=== PATIENT | male | born 1995 | race African-American/Black ===

== ENCOUNTER 2019-10-08 18:27 | Emergency (ER) | payer OTHER ==
[~2019-10-08] VITALS: Ht 172.7 cm; Wt 86.0 kg
[2019-10-08] MEDS ORDERED: IV NORMAL SALINE 1,000ML 1,000 ML IV SCH (19:00)
[2019-10-08] MEDS ORDERED: ACETAMINOPHEN 325 MG TABLET PO ONE ×2 (19:00→19:15)
--- NOTE | 2019-10-08 19:05 | PHYS DOC ---
Past History Past Medical History: No Pertinent History Past Surgical History: No Surgical History Smoking: Non-smoker General Adult EDM: Chief Complaint: DYSPNEA/RESPIRATOY DISTRESS HPI: HPI: 24M with no PMH p/w 4 days of URI Sx. Tested COVID+ as outpatient 3 days ago. Reports nonproductive cough, nasal congestion, intermittent fever and chills. Also having pleuritic sharp diffuse CP over last 2 days. No other aggravating or alleviating factors. Review of Systems: Review of Systems: Constitutional: Reports fever or chills Eyes: Denies change in visual acuity HENT: Denies sore throat. Reports congestion. Respiratory: Reports cough or shortness of breath Cardiovascular: Denies edema. Reports pleuritic CP. GI: Denies abdominal pain, nausea, vomiting, bloody stools or diarrhea : Denies dysuria Musculoskeletal: Denies back pain or joint pain. Reports myalgia. Integument: Denies rash Neurologic: Denies headache, focal weakness or sensory changes Heart Score: Risk Factors: Risk Factors: DM, Current or recent (<one month) smoker, HTN, HLP, family history of CAD, obesity. Risk Scores: Score 0 - 3: 2.5% MACE over next 6 weeks - Discharge Home Score 4 - 6: 20.3% MACE over next 6 weeks - Admit for Clinical Observation Score 7 - 10: 72.7% MACE over next 6 weeks - Early Invasive Strategies Current Medications: Current Meds: Current Medications Medications (Trade) Dose Ordered Sig/Jeffy Start Time Stop Time Status Last Admin Dose Admin Acetaminophen (Tylenol) 325 mg STK-MED ONCE 10/08/19 19:00 10/08/19 19:00 DC Physical Exam: PE: Constitutional: Well developed, well nourished, no acute distress, non-toxic appearance. [] HENT: Normocephalic, atraumatic, bilateral external ears normal, oropharynx moist, no oral exudates. Eyes: PERRL, EOMI, conjunctiva normal, no discharge. [] Neck: Normal range of motion, no tenderness, supple, no stridor. [] Cardiovascular:Heart rate regular rhythm, no murmur [] Lungs & Thorax: Bilateral breath sounds clear to auscultation [] Abdomen: Bowel sounds normal, soft, no tenderness. Skin: Warm, dry, no erythema, no rash. Back: No tenderness, no CVA tenderness.. Extremities: No tenderness, no cyanosis, no clubbing. Neurologic: Alert and oriented X 3 Psychologic: Affect normal, judgement normal, mood normal. [] EKG: EKG: EKG at 1911. NSR. HR 68. Nml intervals. No STEMI. Interp by me. Radiology/Procedures: Radiology/Procedures: PROCEDURE: PORTABLE CHEST 1V Single view chest dated 10/08/2019: No comparison available. Clinical Indication: Pain and shortness of breath. COVID positive. Findings: Single upright portable exam of the chest was performed. Heart and mediastinal contours are within normal limits. There is some patchy increased density at both lung bases, left greater than right. No consolidation or pleural effusion. No pneumothorax. Impression:: Patchy bibasilar airspace disease, atelectasis versus pneumonia. Viral pneumonitis not excluded. Electronically signed by: Krystian Colunga MD (10/08/2019 7:58 PM) [facility] PROCEDURE: CT ANGIOGRAPHY CHEST CT angiography chest with contrast PQRS statement: CT scans at this facility use dose reduction including either automated exposure control, iterative reconstructions, and /or weight based radiation dosing via mA and kV modification when appropriate to reduce radiation dose to as low as reasonably achievable. HISTORY: Chest pain, shortness of breath, positive Covid 19 infection. TECHNIQUE: CT imaging the chest with 3-D MIP reconstructions of the pulmonary arteries with 100 mL Omnipaque 350 intravenous contrast. FINDINGS: 1 cm right renal cyst. Mild residual thymus gland density anterior mediastinum normal for age. Thoracic aorta and esophagus are unremarkable. Heart size normal. No pulmonary artery emboli there is mild reconstruction artifact across the left infrahilar vessels without a true embolus. No enlarged adenopathy within the chest. No pleural effusions. There are lower lobe greater than upper lobe groundglass as well as focal consolidated opacities with a peripheral subpleural distribution, no interstitial thickening, this is typical of an infectious or inflammatory process, most likely reflective of Covid viral pneumonia given the history of a positive diagnosis of the viral infection. COVID Typical pattern: (Peripheral bilateral groundglass opacities with or without consolidation or crazy paving, or a reverse halo sign) Commonly reported imaging features of (COVID -19) pneumonia are present. Other processes such as influenza pneumonia and organizing pneumonia, as can be seen with drug toxicity and connective tissue disease, can cause a similar imaging pattern. Bones are unremarkable. IMPRESSION: 1. No pulmonary artery emboli.. 2. Bilateral lower lobe preferential peripheral subpleural groundglass and consolidative opacities most typical of an infectious or inflammatory process as described above. Electronically signed by: Samir Moss MD (10/08/2019 8:01 PM) [facility] [place] Course & Med Decision Making: Course & Med Decision Making Pertinent Labs and Imaging studies reviewed. (See chart for details) In summary, healthy 24-year-old male, known to be COVID positive, who presents for evaluation of ongoing URI symptoms as well as 2 days of pleuritic diffuse chest pain. Hemodynamically stable, normal pulse oximetry on room air. Unremarkable physical examination with faint rhonchi bilaterally on auscultation. Lab was otherwise unrevealing other than leukopenia without lymphopenia or thrombocytopenia. No transaminitis. Chest x-ray with bilateral infiltrates. CTA chest obtained, with redemonstration of bilateral infiltrates, but no PE. He otherwise remains well-appearing and nontoxic. The patient was discharged home with outpatient PMD follow-up. Prescription for Zithromax. Return precautions given. Dragon Disclaimer: Dragharinder Disclaimer: This electronic medical record was generated, in whole or in part, using a voice recognition dictation system. Departure Departure: Impression: Primary Impression: Viral pneumonia Additional Impressions: COVID-19 Pleurisy Disposition: HOME, SELF-CARE Condition: STABLE Referrals: PCP,NO (PCP) Patient Instructions: Pneumonia, Adult, [id number] Additional Instructions: Please take motrin 600 mg every 8 hours as needed for pain/fever. Scripts Benzonatate (TESSALON PERLE) 100 Mg Capsule 100 MG PO Q8HRS for cough, #21 CAP Prov: LE,DEYVI H DO 10/08/19 Azithromycin (ZITHROMAX) 250 Mg Tablet 1 PKG PO UD for pneumonia, #6 TAB Prov: LE,DEYVI H DO 10/08/19 LE,DEYVI H DO October 08, 2019 19:05
[2019-10-08] MEDS ORDERED: IOHEXOL 350 MG/ML 100 ML VIAL. IV ONE (19:15)
[2019-10-08 19:17] LABS: BASO % 1 % (0-3); EOS % 0 % (0-3); HEMOGLOBIN 16.2 g/dL (13.0-17.5); LYMPH # 1.4 x10^3/uL (1.0-4.8); LYMPH % 44 % (24-48); MEAN CORPUSCULAR HEMOGLOBIN 30 pg (25-35); MEAN CORPUSCULAR HGB CONC 34 g/dL (31-37); MEAN CORPUSCULAR VOLUME 88 fL (79-100); MONO # 0.4 x10^3/uL (0.0-1.1); MONO % 12 % (0-9); NEUT # 1.4 x10^3uL (1.8-7.7); NEUT % 44 % (31-73); PLATELET COUNT 143 x10^3/uL (140-400); RED BLOOD COUNT 5.45 x10^6/uL (4.30-5.70); RED CELL DISTRIBUTION WIDTH 13.2 % (11.5-14.5); WHITE BLOOD COUNT 3.1 x10^3/uL (4.0-11.0)
[2019-10-08 19:21] VITALS: BP 135/75
[2019-10-08 19:26] LABS: CALCIUM 8.7 mg/dL (8.5-10.1); CREATININE 1.4 mg/dL (0.7-1.3); GFR 61.3; POTASSIUM 3.7 mmol/L (3.5-5.1)
[2019-10-08 19:32] LABS: ALBUMIN 3.7 g/dL (3.4-5.0); ALBUMIN/GLOBULIN RATIO 0.9 (1.0-1.7); MAGNESIUM 2.2 mg/dL (1.8-2.4); TOTAL BILIRUBIN 0.4 mg/dL (0.2-1.0)
--- NOTE | 2019-10-08 20:01 | RAD ---
Single view chest dated 10/08/2019: No comparison available. Clinical Indication: Pain and shortness of breath. COVID positive. Findings: Single upright portable exam of the chest was performed. Heart and mediastinal contours are within normal limits. There is some patchy increased density at both lung bases, left greater than right. No consolidation or pleural effusion. No pneumothorax. Impression:: Patchy bibasilar airspace disease, atelectasis versus pneumonia. Viral pneumonitis not excluded. Electronically signed by: Krystian Colunga MD (10/08/2019 7:58 PM) [facility]
--- NOTE | 2019-10-08 20:04 | RAD ---
CT angiography chest with contrast PQRS statement: CT scans at this facility use dose reduction including either automated exposure control, iterative reconstructions, and /or weight based radiation dosing via mA and kV modification when appropriate to reduce radiation dose to as low as reasonably achievable. HISTORY: Chest pain, shortness of breath, positive Covid 19 infection. TECHNIQUE: CT imaging the chest with 3-D MIP reconstructions of the pulmonary arteries with 100 mL Omnipaque 350 intravenous contrast. FINDINGS: 1 cm right renal cyst. Mild residual thymus gland density anterior mediastinum normal for age. Thoracic aorta and esophagus are unremarkable. Heart size normal. No pulmonary artery emboli there is mild reconstruction artifact across the left infrahilar vessels without a true embolus. No enlarged adenopathy within the chest. No pleural effusions. There are lower lobe greater than upper lobe groundglass as well as focal consolidated opacities with a peripheral subpleural distribution, no interstitial thickening, this is typical of an infectious or inflammatory process, most likely reflective of Covid viral pneumonia given the history of a positive diagnosis of the viral infection. COVID Typical pattern: (Peripheral bilateral groundglass opacities with or without consolidation or crazy paving, or a reverse halo sign) Commonly reported imaging features of (COVID -19) pneumonia are present. Other processes such as influenza pneumonia and organizing pneumonia, as can be seen with drug toxicity and connective tissue disease, can cause a similar imaging pattern. Bones are unremarkable. IMPRESSION: 1. No pulmonary artery emboli.. 2. Bilateral lower lobe preferential peripheral subpleural groundglass and consolidative opacities most typical of an infectious or inflammatory process as described above. Electronically signed by: Samir Moss MD (10/08/2019 8:01 PM) [facility]
[2019-10-08] MEDS ORDERED: BENZ100C PO (20:27)
[2019-10-08] MEDS ORDERED: AZIT250T PO (20:27)
--- NOTE | 2019-10-09 03:54 | EKG ---
[address] [address] Test Date: 2019-10-08 Test Time: 19:11:42 Pat Name: JACEK KOHLER Department: Room: Gender: M Crane Rigger: : 1995 Requested By: DEYVI CAPPS Order Number: [id number] Reading MD: Blane Mena Measurements Intervals [place] Rate: 68 P: 31 [place]: 168 QRS: 13 QRSD: 88 T: 25 QT: 362 QTc: 389 Interpretive Statements SINUS RHYTHM NORMAL ECG RI6.02 No previous ECG available for comparison Electronically Signed On 10-09-2019 8:22:39 CDT by Blane Mena
== END 2019-10-08 21:05 | disposition home or self-care (01) ==
LOC: ER 18:37
DX: U07.1 COVID-19 (principal); J12.89 Other viral pneumonia; R09.1 Pleurisy
CPT/HCPCS: 36415; 71045; 71275; 80053; 83735; 84484; 85025; 87040; 93005; 99285; Q9967; J7030